=== PATIENT | female | born 1955 | race Caucasian/White ===

== ENCOUNTER → 2017-02-13 | Outpatient (CLI) | payer OTHER | LOC: FIMAGING 09:51 | PROVIDERS: ATTEND Internal Medicine | DX: Z01.818 Encounter for other preprocedural examination (principal); R91.8 Other nonspecific abnormal finding of lung field; M41.85 Other forms of scoliosis, thoracolumbar region ==

== ENCOUNTER → 2017-12-02 | Outpatient (CLI) | payer OTHER | LOC: BMCIMAGING 15:20 | PROVIDERS: ATTEND Internal Medicine | DX: Z01.818 Encounter for other preprocedural examination (principal); J98.4 Other disorders of lung; Z96.9 Presence of functional implant, unspecified ==

== ENCOUNTER 2018-11-07 01:25 | Emergency (ER) | payer OTHER ==
--- NOTE | 2018-11-07 01:30 | EDPHY ---
H & P Time Seen by Provider: 11/07/18 01:30 HPI/ROS: HPI CHIEF COMPLAINT: Right hip discomfort HISTORY OF PRESENT ILLNESS: 63-year-old female, previous right hip replacement , presents emergency room after she is complaining of right lateral hip pain. She thinks maybe her hip is dislocated. Patient states that her iPad fell out of her bed she was sitting on the nightstand and she went to turn to get the iPad off the ground bent over felt a pop in her right hip and then fell to the ground. Complains of right lateral hip pain. She arrives to the emergency room by EMS. She took 10 mg p.o. Oxycodone prior to arrival. Main complaint right lateral hip pain. She states that she heard a pop and then had some discomfort. Then went to the ground. She arrives emergency room lying on her right side on her right hip. Complains right lateral hip pain. She is able to lift up her right leg. She is able to lay flat but gives her discomfort. Past Medical History: Significant medical history for chronic pain, thyroid disease Past Surgical History: Right hip replacement, cervical fusion, extensive hardware down her back Social History: Denies daily use of drugs alcohol tobacco. Family History: Noncontributory ROS REVIEW OF SYSTEMS: 10 Systems were reviewed and negative with the exception of the elements mentioned in the history of present illness. Exam Constitutional nontoxic triage nursing summary reviewed, vital signs reviewed, awake/alert. Eyes normal conjunctivae and sclera, EOMI, PERRLA. HENT normal inspection, atraumatic, moist mucus membranes, no epistaxis, neck supple/ no meningismus, no raccoon eyes. Respiratory clear to auscultation bilaterally, normal breath sounds, no respiratory distress, no wheezing. Cardiovascular rate normal, regular rhythm, no murmur, no edema, distal pulses normal. Gastrointestinal soft, non-tender, no rebound, no guarding, normal bowel sounds, no distension, no pulsatile mass. Genitourinary no CVA tenderness. Musculoskeletal right leg: She is lying on her right hip however when I get her to lay flat there is a right leg to left leg discrepancy her right leg is shorter than her left leg. Her right leg is neurovascular intact with good cap refill, good distal pulse, and to be able to range her hip but she has discomfort. no midline vertebral tenderness, full range of motion, no calf swelling, no tenderness of extremities, no meningismus, good pulses, neurovascularly intact. Skin pink, warm, & dry, no rash, skin atraumatic. Neurologic awake, alert and oriented x 3, AAOx3, moves all 4 extremities equally, motor intact, sensory intact, CN II-XII intact, normal cerebellar, normal vision, normal speech. Psychiatric normal mood/affect. Heme/Lymph/Immune no lymphadenopathy. Differential Diagnosis: Right hip fracture, right femur fracture, hip dislocation Medical Decision Making: Plan for this patient x-ray pelvis, x-ray right hip. Re-evaluation: X-ray of the pelvis reviewed this shows a prostatic right hip and appears to be dislocated. Patient be moved from ER room 5 to ER room 2 and set up for conscious sedation. Procedure: Procedural sedation. #1 Indication: Right hip dislocation A pre-sedation evaluation was completed on the patient just prior to the procedure. Patient is an appropriate candidate for procedural sedation with ASA class 1 E. The risks of the sedation were discussed including but not limited to dysrhythmia, need for airway intervention or general anesthesia, disability, ; and verbal consent obtained. A timeout was observed and patient's identity confirmed. The patient was sedated with 40 mg propofol The patient was monitored with continuous pulse oximetry, capnography, and conveyor monitor. There were no complications and no significant hypoxemia. I remained at the bedside for the sedation. The total time I spent in the procedural sedation was 20 min This patient tolerated very well however prior to conscious sedation the patient was chewing gum we removed the come out of her oropharynx and her top dentures. She did not let me know she had gum in her mouth I was able to visualize this prior to conscious sedation and this was removed. X-ray of the right hip was obtain after conscious sedation, this was reviewed and was unable to reduce. 2nd attempt of conscious sedation will be pain. Patient consents. Procedure: Procedural sedation. #2 Indication: Right hip dislocation A pre-sedation evaluation was completed on the patient just prior to the procedure. Patient is an appropriate candidate for procedural sedation with ASA class 1 E. The risks of the sedation were discussed including but not limited to dysrhythmia, need for airway intervention or general anesthesia, disability, ; and verbal consent obtained. A timeout was observed and patient's identity confirmed. The patient was sedated with 40 mg propofol The patient was monitored with continuous pulse oximetry, capnography, and conveyor monitor. There were no complications and no significant hypoxemia. I remained at the bedside for the sedation. The total time I spent in the procedural sedation was 20 min Post reduction x-ray after 2nd procedural sedation reviewed by me still posteriorly dislocated. I have consult Dr. Stokes, orthopedic surgery he will come and see if he can get the hip back in. Procedure: Procedural sedation. #3 Indication: Persistent right hip dislocation posterior. A pre-sedation evaluation was completed on the patient just prior to the procedure. Patient is an appropriate candidate for procedural sedation with ASA class 1 E. The risks of the sedation were discussed including but not limited to dysrhythmia, need for airway intervention or general anesthesia, disability, ; and verbal consent obtained. A timeout was observed and patient's identity confirmed. The patient was sedated with 40. The patient was monitored with continuous pulse oximetry, capnography, and conveyor monitor. There were no complications and no significant hypoxemia. I remained at the bedside for the sedation. The total time I spent in the procedural sedation was 20 mins Procedural sedation was performed by myself, Dr. Stokes, with orthopedic surgery was able to relocate her hip after 2 attempts during this conscious sedation. Post reduction x-ray shows good hip alignment. No fracture. X-ray reviewed at 3:08 a.m. Of the right hip good relocation without fracture. 5:00 a.m. Patient ambulated well to the bathroom. Hip is relocated. She feels comfortable. She was comfortable going home with discharge. Recommend she follows up with Orthopedics closely in the next 24-48 hours. Source: Patient, EMS - Personal History Tetanus Vaccine Date: unknown - Medical/Surgical History Hx Asthma: No Hx Chronic Respiratory Disease: No Hx Diabetes: No Hx Cardiac Disease: No Hx Renal Disease: No Hx Cirrhosis: No Hx Alcoholism: No Hx HIV/AIDS: No Hx Splenectomy or Spleen Trauma: No Other PMH: r knee replacement; spinal sx; multiple falls; L femur fx; l hip replacement; hypothyroid, R knee meniscal tear - Social History Smoking Status: Former smoker Constitutional: Initial Vital Signs Temperature (C) 37.4 C 11/07/18 01:34 Heart Rate 91 11/07/18 01:34 Respiratory Rate 16 11/07/18 01:34 Blood Pressure 127/91 H 11/07/18 01:34 O2 Sat (%) 96 11/07/18 01:34 O2 Delivery Mode [Post Nasal Cannula Procedure 3rd] O2 Delivery Mode [Post Nasal Cannula Procedure 2nd] O2 Delivery Mode [Post Non-Rebreather Mask Procedure 1st] O2 Delivery Mode [Procedural Non-Rebreather Mask 1st] O2 Delivery Mode [.Immediate Non-Rebreather Mask Pre-Procedure] O2 Delivery Mode Room Air O2 (L/minute) [Post Procedure 2 3rd] O2 (L/minute) [Post Procedure 2 2nd] O2 (L/minute) [Post Procedure 15 1st] O2 (L/minute) [Procedural 1st] 15 O2 (L/minute) [.Immediate Pre- 15 Procedure] Allergies/Adverse Reactions: No Known Allergies Allergy (Unverified 08/10/12 16:09) Home Medications: Medication Instructions Recorded Levothyroxine [Synthroid 50 mcg 50 mcg PO DAILY06 08/10/12 (*)] Multivitamins [Multivitamin (*)] 1 each PO DAILY 08/26/12 Amphet Asp/Amphet/D-Amphet 20 mg PO DAILY 11/24/14 [Amphetamine Salts 20 mg Tablet] HYDROcodone/APAP 10325 [[place] 1 tab PO Q4H PRN 11/24/14 10/325 (*)] Magnesium Oxide [Magnesium Oxide 400 mg PO DAILY 11/24/14 400 mg (*)] Zolpidem Tartrate [Ambien 5MG (*)] 5 mg PO HS PRN 11/24/14 Calcium Polycarbophil [FIBERCON] 625 mg PO DAILY 01/14/15 DULoxetine [Cymbalta 30 MG (*)] 30 mg PO HS 01/14/15 Cholecalciferol Vit D3 [Vitamin D3 5,000 units PO DAILY 02/08/15 (*)] Gabapentin [Neurontin 400 MG (*)] 1,200 mg PO TID 02/08/15 oxyCODONE CR [Oxycontin] 30 mg PO Q8H 02/08/15 Docusate Sodium [Colace 100 MG (*)] 100 mg PO BID #60 cap 02/11/15 Warfarin Sodium [Coumadin 2.5MG 2.5 mg PO DAILY16 #20 tab 02/11/15 (*)] celeCOXIB [Celebrex (*)] 200 mg PO DAILY #20 cap 02/11/15 Medical Decision Making - Data Points Medications Given: Discontinued Medications Sodium Chloride (Ns) 1,000 mls @ 0 mls/hr IV ONCE ONE PRN Reason: Wide Open Stop: 11/07/18 01:47 Last Admin: 11/07/18 01:54 Dose: 1,000 mls Sodium Chloride (Ns) 1,000 mls @ 0 mls/hr IV EDNOW ONE; Wide Open PRN Reason: Protocol Stop: 11/07/18 02:56 Last Admin: 11/07/18 02:56 Dose: 1,000 mls Propofol (Diprivan) 100 mg IVP EDNOW ONE Stop: 11/07/18 01:47 Last Admin: 11/07/18 02:33 Dose: 80 mg Propofol (Diprivan) 40 mg IVP EDNOW ONE Stop: 11/07/18 03:17 Last Admin: 11/07/18 03:17 Dose: 40 mg Departure - Departure Disposition: Home, Routine, Self-Care Clinical Impression: Hip dislocation, right Qualifiers: Encounter type: initial encounter Qualified Code(s): S73.004A - Unspecified dislocation of right hip, initial encounter Condition: Good Instructions: Hip Dislocation (ED) Additional Instructions: 1. Follow up with your orthopedic surgeon Referrals: NONE *PRIMARY CARE P,. [Primary Care Provider] - As per Instructions
[2018-11-07] MEDS ORDERED: NS 1,000 ML IV ONE ×2 (01:46→02:55)
[2018-11-07] MEDS ORDERED: PROPOFOL 200 MG/20 ML VIAL IVP ONE ×2 (01:46→03:16)
[2018-11-07] MEDS ORDERED: PROPOFOL 200 MG/20 ML VIAL ONE (01:47)
[2018-11-07 05:12] VITALS: BP 108/67
--- NOTE | 2018-11-07 05:18 | GCON ---
REASON FOR CONSULTATION: I was asked to see the patient by the emergency room physician for a diagno sis of a right hip dislocation. HISTORY OF PRESENT ILLNESS: The patient is a very pleasant 63-year-old woman with multiple orthopedi c procedures including multiple right hip replacements as well as a left hemiarthroplasty and multipl e spine fusions. She sustained a fall earlier today, resulting in immediate pain and deformity of th e right leg and inability to bear weight. PHYSICAL EXAMINATION: On physical examination, the patient has incisions anteriorly and posteriorly about the hip. She has no gross sensorimotor or vascular deficits; however, her exam is markedly rachel ited by the dislocation at this time. Of note, the patient had been sedated several times before my seeing her and is somewhat sedated during this exam; however, the patient is still certainly able to give consent for the upcoming procedure. IMAGING: Image review includes x-rays of the pelvis and right femur, which demonstrate a right hip d islocation without evidence of fracture. PROCEDURE: While a conscious sedation was administered by the Emergency Department, the hip was redu nu using a combination of internal rotation, traction, and flexion, and abduction. The hip was note d to be quite unstable and readily located and dislocated. The knee and hip were then placed into fu ll extension and the knee immobilizer was applied. An additional x-ray was taken, which demonstrated location of the prosthesis. IMPRESSION: Right hip dislocation, status post relocation. ASSESSMENT AND PLAN: Moving forward, I think the patient should certainly see her orthopedic surgeon rather urgently, hopefully later today. The patient is to maintain the immobilizer at all times. O f note, if she does dislocate again, I think she should probably be admitted for her safety, given th e degree of instability in the hip noted. Thank you again for the opportunity for this consultation. Please do not hesitate to contact me if a ny further issues arise. /[id number]/MODL
== END 2018-11-07 06:22 | disposition home or self-care (01) ==
LOC: EDUNIT#
PROC: 0SS9XZZ Reposition Right Hip Joint, External Approach (ICD-10-PCS; principal; 2018-11-07)
DX: S73.004A Unspecified dislocation of right hip, initial encounter (principal); X50.1XXA Overexertion from prolonged static or awkward postures, initial encounter; Y92.003 Bedroom of unspecified non-institutional (private) residence as the place of occurrence of the external cause; Y93.9 Activity, unspecified; Y99.9 Unspecified external cause status; Z87.891 Personal history of nicotine dependence
CPT/HCPCS: J2704

== ENCOUNTER 2018-11-14 23:59 | Emergency (ER) | payer OTHER ==
[2018-11-15] MEDS ORDERED: NS 1,000 ML IV ONE (00:02)
--- NOTE | 2018-11-15 00:04 | EDPHY ---
H & P Time Seen by Provider: 11/15/18 00:01 HPI/ROS: HPI CHIEF COMPLAINT: Right hip dislocation HISTORY OF PRESENT ILLNESS: Patient very pleasant 63-year-old female who I am very familiar with that I saw last week for hip dislocation. She presents emergency room stating that she lunged after she knocked a thing of super glue off of the counter turned and felt a pop in her right hip and believes her right hip is dislocated again. She arrives by EMS. She states is not nearly as painful as last weeks dislocation. Denies direct trauma. Past Medical History: Chronic pain, chronic back pain Past Surgical History: Extensive surgeries including bilateral hips, and extensive back surgery. Social History: Lives locally, independent, denies drugs alcohol tobacco. Family History: Noncontributory ROS REVIEW OF SYSTEMS: 10 Systems were reviewed and negative with the exception of the elements mentioned in the history of present illness. Exam Constitutional triage nursing summary reviewed, vital signs reviewed, awake/ alert. Eyes normal conjunctivae and sclera, EOMI, PERRLA. HENT normal inspection, atraumatic, moist mucus membranes, no epistaxis, neck supple/ no meningismus, no raccoon eyes. Respiratory clear to auscultation bilaterally, normal breath sounds, no respiratory distress, no wheezing. Cardiovascular rate normal, regular rhythm, no murmur, no edema, distal pulses normal. Gastrointestinal soft, non-tender, no rebound, no guarding, normal bowel sounds, no distension, no pulsatile mass. Genitourinary no CVA tenderness. Musculoskeletal right leg: Shortened and externally rotated. Good distal pulse , good cap refill, warm extremity. Limited range of motion due to pain of the right lateral hip. no midline vertebral tenderness, full range of motion, no calf swelling, no tenderness of extremities, no meningismus, good pulses, neurovascularly intact. Skin pink, warm, & dry, no rash, skin atraumatic. Neurologic awake, alert and oriented x 3, AAOx3, moves all 4 extremities equally, motor intact, sensory intact, CN II-XII intact, normal cerebellar, normal vision, normal speech. Psychiatric normal mood/affect. Heme/Lymph/Immune no lymphadenopathy. Differential Diagnosis: Includes but is not limited to in a particular order hip dislocation, hip fracture, contusion, strain Medical Decision Making: Plan for this patient x-ray right hip, moved to ER room 1 for possible conscious sedation for relocation of the hip. Re-evaluation: X-ray a pre reduction shows a posterior right hip dislocation Procedure: Procedural sedation. Indication: Right hip dislocation posterior A pre-sedation evaluation was completed on the patient just prior to the procedure. Patient is an appropriate candidate for procedural sedation with ASA class 1 E. The risks of the sedation were discussed including but not limited to dysrhythmia, need for airway intervention or general anesthesia, disability, ; and verbal consent obtained. A timeout was observed and patient's identity confirmed. The patient was sedated with 100 mg Propofol. The patient was monitored with continuous pulse oximetry, capnography, and desk monitor. There were no complications and no significant hypoxemia. I remained at the bedside for the sedation. The total time I spent in the procedural sedation was 30 min Post reduction x-ray appears good. Good alignment of the right hip. No fracture. 12:35 a.m. patient being recovered from conscious sedation. She did well during the procedure there were no complications. Patient placed in knee immobilizer for immobility of her right hip. 0140: Re-evaluation at this time she is resting comfortably she has no complaints. Ambulatory well throughout the emergency without difficulty. P.o. Challenge well without difficulty. Feels much better. No significant hip pain. Placed in knee immobilizer for immobilization of the right hip. X-rays reviewed. 1st initial hip x-ray shows a posterior dislocation. 2nd x-ray of the hip right-sided shows relocation without fracture. Interpreted by myself. Source: Patient, EMS - Personal History Tetanus Vaccine Date: unknown - Medical/Surgical History Hx Asthma: No Hx Chronic Respiratory Disease: No Hx Diabetes: No Hx Cardiac Disease: No Hx Renal Disease: No Hx Cirrhosis: No Hx Alcoholism: No Hx HIV/AIDS: No Hx Splenectomy or Spleen Trauma: No Other PMH: r knee replacement; spinal sx; multiple falls; L femur fx; l hip replacement; hypothyroid, R knee meniscal tear - Social History Smoking Status: Former smoker Constitutional: Initial Vital Signs Temperature (C) 37.1 C 11/15/18 00:00 Heart Rate 83 11/15/18 00:00 Respiratory Rate 16 11/15/18 00:00 Blood Pressure 133/84 H 11/15/18 00:00 O2 Sat (%) 97 11/15/18 00:00 O2 Delivery Mode [Post Nasal Cannula Procedure 1st] O2 Delivery Mode [Procedural Non-Rebreather Mask 3rd] O2 Delivery Mode [Procedural Non-Rebreather Mask 2nd] O2 Delivery Mode [Procedural Non-Rebreather Mask 1st] O2 Delivery Mode [.Immediate Non-Rebreather Mask Pre-Procedure] O2 Delivery Mode Room Air O2 (L/minute) [Post Procedure 2 1st] O2 (L/minute) [Procedural 3rd] 15 O2 (L/minute) [Procedural 2nd] 15 O2 (L/minute) [Procedural 1st] 15 O2 (L/minute) [.Immediate Pre- 15 Procedure] Allergies/Adverse Reactions: No Known Allergies Allergy (Unverified 11/15/18 00:16) Home Medications: Medication Instructions Recorded Levothyroxine [Synthroid 50 mcg 50 mcg PO DAILY06 08/10/12 (*)] Multivitamins [Multivitamin (*)] 1 each PO DAILY 08/26/12 Amphet Asp/Amphet/D-Amphet 20 mg PO DAILY 11/24/14 [Amphetamine Salts 20 mg Tablet] HYDROcodone/APAP 10/325 [[place] 1 tab PO Q4H PRN 11/24/14 10/325 (*)] Magnesium Oxide [Magnesium Oxide 400 mg PO DAILY 11/24/14 400 mg (*)] Zolpidem Tartrate [Ambien 5MG (*)] 5 mg PO HS PRN 11/24/14 Calcium Polycarbophil [FIBERCON] 625 mg PO DAILY 01/14/15 DULoxetine [Cymbalta 30 MG (*)] 30 mg PO HS 01/14/15 Cholecalciferol Vit D3 [Vitamin D3 5,000 units PO DAILY 02/08/15 (*)] Gabapentin [Neurontin 400 MG (*)] 1,200 mg PO TID 02/08/15 oxyCODONE CR [Oxycontin] 30 mg PO Q8H 02/08/15 Docusate Sodium [Colace 100 MG (*)] 100 mg PO BID #60 cap 02/11/15 Warfarin Sodium [Coumadin 2.5MG 2.5 mg PO DAILY16 #20 tab 02/11/15 (*)] celeCOXIB [Celebrex (*)] 200 mg PO DAILY #20 cap 02/11/15 Medical Decision Making - Data Points Medications Given: Discontinued Medications Sodium Chloride (Ns) 1,000 mls @ 0 mls/hr IV ONCE ONE PRN Reason: Wide Open Stop: 11/15/18 00:03 Last Admin: 11/15/18 00:18 Dose: 1,000 mls Propofol (Diprivan) 100 mg IVP EDNOW ONE Stop: 11/15/18 00:58 Last Admin: 11/15/18 00:35 Dose: 100 mg Departure - Departure Disposition: Home, Routine, Self-Care Clinical Impression: Hip dislocation, right Condition: Good Instructions: Hip Dislocation (ED) Additional Instructions: 1. Follow up with her orthopedic surgeon 2. Knee immobilizer to help prevent you're hip dislocating. 3. Return to the emergency room if worsening symptoms Referrals: Patient,NotPresent [Unknown] - As per Instructions Armin Gallegos MD [Medical Doctor] - As per Instructions
[2018-11-15] MEDS ORDERED: PROPOFOL 200 MG/20 ML VIAL ONE (00:12)
[2018-11-15] MEDS ORDERED: PROPOFOL 200 MG/20 ML VIAL IVP ONE (00:57)
[2018-11-15 05:00] VITALS: BP 105/63
== END 2018-11-15 04:56 | disposition home or self-care (01) ==
LOC: EDUNIT#
PROC: 0SS9XZZ Reposition Right Hip Joint, External Approach (ICD-10-PCS; principal; 2018-11-14)
DX: S73.001A Unspecified subluxation of right hip, initial encounter (principal); W18.49XA Other slipping, tripping and stumbling without falling, initial encounter; Y92.000 Kitchen of unspecified non-institutional (private) residence as the place of occurrence of the external cause
CPT/HCPCS: J2704

== ENCOUNTER 2019-03-25 00:44 | Inpatient (IN) | payer OTHER, BC ==
[2019-03-25] MEDS ORDERED: PROPOFOL 200 MG/20 ML VIAL ONE (00:53)
--- NOTE | 2019-03-25 00:53 | EDPHY ---
H & P Time Seen by Provider: 03/25/19 00:51 HPI/ROS: HPI CHIEF COMPLAINT: Right hip dislocation. HISTORY OF PRESENT ILLNESS: Patient very pleasant 63-year-old female arrives to the emergency room with right hip dislocation. I have seen this patient previous times right hip dislocation. She is mechanical hip. She lives independently in a private residence, sometimes her hip pops out with different movements. She states she was bent over cleaning the toilet stood up and her right hip popped out. She was unable to relocated at home. She arrives to emergency room by ambulance in no acute distress. She has an internally rotated shortened right leg. She has mild tender palpation right lateral hip. Past Medical History: Right hip dislocation, chronic back pain Past Surgical History: Multiple surgeries. Hip surgeries. Back surgery. Social History: Denies drugs alcohol tobacco Family History: Noncontributory ROS REVIEW OF SYSTEMS: 10 Systems were reviewed and negative with the exception of the elements mentioned in the history of present illness. Exam Constitutional triage nursing summary reviewed, vital signs reviewed, awake/ alert. Eyes normal conjunctivae and sclera, EOMI, PERRLA. HENT normal inspection, atraumatic, moist mucus membranes, no epistaxis, neck supple/ no meningismus, no raccoon eyes. Respiratory clear to auscultation bilaterally, normal breath sounds, no respiratory distress, no wheezing. Cardiovascular rate normal, regular rhythm, no murmur, no edema, distal pulses normal. Gastrointestinal soft, non-tender, no rebound, no guarding, normal bowel sounds, no distension, no pulsatile mass. Genitourinary no CVA tenderness. Musculoskeletal right leg neurovascular intact good distal pulse, good cap refill, inverted than shortened right leg. no midline vertebral tenderness, full range of motion, no calf swelling, no tenderness of extremities, no meningismus, good pulses, neurovascularly intact. Skin pink, warm, & dry, no rash, skin atraumatic. Neurologic awake, alert and oriented x 3, AAOx3, moves all 4 extremities equally, motor intact, sensory intact, CN II-XII intact, normal cerebellar, normal vision, normal speech. Psychiatric normal mood/affect. Heme/Lymph/Immune no lymphadenopathy. Differential Diagnosis: Includes but is not limited to in a particular order hip dislocation, hip fracture, pelvis fracture Medical Decision Making: Plan for this patient x-ray right hip, set up for conscious sedation. Re-evaluation: Procedure: Procedural sedation. Indication: Right Hip Dislocation. A pre-sedation evaluation was completed on the patient just prior to the procedure. Patient is an appropriate candidate for procedural sedation with ASA class 1 E. The risks of the sedation were discussed including but not limited to dysrhythmia, need for airway intervention or general anesthesia, disability, ; and verbal consent obtained. A timeout was observed and patient's identity confirmed. The patient was sedated with 60mg of propofol. The patient was monitored with continuous pulse oximetry, capnography, and cafeteria monitor. There were no complications and no significant hypoxemia. I remained at the bedside for the sedation. The total time I spent in the procedural sedation was 20 min Patient tolerated conscious sedation well. X-ray the right hip reviewed this shows posterior dislocation. Patient tolerated conscious sedation well. She is currently recovering. Post reduction x-ray is being obtained. Post reduction x-ray of the right hip reviewed by myself. This shows normal anatomic alignment however above the acetabulum there is a bony abnormality indicating possibly a small fracture. Will make sure patient follows up with Orthopedics I discussed this with the patient at length. Patient recovered nicely from conscious sedation. There was no complications. Patient ambulated well throughout the emergency room without difficulty. She feels much better. Does complain of some mild right lateral hip pain but has full range of motion. Plan for patient follow up with Orthopedics. We discussed return precautions return emergency room if worsening pain fever, trouble walking, or dislocation. Follow up with Orthopedics. Recommend taking easy over the next 48 hr. I attempted to road test the patient however she had a very unsteady gait, is a fall risk she lives alone. She complains of right hip pain right knee pain. Given that she is unable to walk, not safe for discharge home should be admitted the hospital. 416AM: Patient to be placed in knee immobilizer to help from dislocating her right hip again. Xray of right knee will be obtained Plan for admission as she is a fall risk and lives alone. Most likely ortho to see labs will be sent Patient agrees for admission Dr. Garcia Consulted agrees to admit. X-ray of the right knee negative for acute traumatic injury. Hardware appears to be intact. Source: Patient, EMS - Personal History Tetanus Vaccine Date: unknown - Medical/Surgical History Hx Asthma: No Hx Chronic Respiratory Disease: No Hx Diabetes: No Hx Cardiac Disease: No Hx Renal Disease: No Hx Cirrhosis: No Hx Alcoholism: No Hx HIV/AIDS: No Hx Splenectomy or Spleen Trauma: No Other PMH: r knee replacement; spinal sx; multiple falls; L femur fx; l hip replacement; hypothyroid, R knee meniscal tear - Social History Smoking Status: Former smoker Constitutional: Initial Vital Signs Temperature (C) 36.2 C 03/25/19 00:50 Heart Rate 83 03/25/19 00:50 Respiratory Rate 16 03/25/19 00:50 Blood Pressure 132/84 H 03/25/19 00:50 O2 Sat (%) 95 03/25/19 00:50 O2 Delivery Mode [Post Nasal Cannula Procedure 2nd] O2 Delivery Mode [Post Non-Rebreather Mask Procedure 1st] O2 Delivery Mode [Procedural Non-Rebreather Mask 1st] O2 Delivery Mode [.Immediate Non-Rebreather Mask Pre-Procedure] O2 Delivery Mode Room Air O2 (L/minute) [Post Procedure 2 2nd] O2 (L/minute) [Post Procedure 15 1st] O2 (L/minute) [Procedural 1st] 15 O2 (L/minute) [.Immediate Pre- 15 Procedure] O2 (L/minute) 10 Allergies/Adverse Reactions: No Known Allergies Allergy (Unverified 03/25/19 00:50) Home Medications: Medication Instructions Recorded Levothyroxine [Synthroid 50 mcg 50 mcg PO DAILY06 08/10/12 (*)] Multivitamins [Multivitamin (*)] 1 each PO DAILY 08/26/12 Amphet Asp/Amphet/D-Amphet 20 mg PO BID@11/24/14 [Amphetamine Salts 20 mg Tablet] Zolpidem Tartrate [Ambien 5MG (*)] 5 mg PO HS PRN 11/24/14 Calcium Polycarbophil [FIBERCON] 625 mg PO DAILY 01/14/15 Gabapentin [Neurontin 400 MG (*)] 1,200 mg PO TID 02/08/15 Naloxegol Oxalate [Movantik] 25 mg PO DAILY 03/25/19 Rivaroxaban [Xarelto] 20 mg PO DAILY18 03/25/19 morphINE SR [MS Contin/Oramorph SR 30 mg PO TID 03/25/19 30 mg (*)] oxyCODONE IR [Oxycodone Ir (*)] 10 mg PO Q6 PRN 03/25/19 Medical Decision Making - Data Points Laboratory Results: Laboratory Results 03/25/19 04:17 03/25/19 04:17 Medications Given: Amphetamine/Dextroamphetamine (Adderall) 20 mg PO BID@0900,1500 [facility] Stop: 09/21/19 14:59 Last Admin: 03/27/19 09:18 Dose: 20 mg Gabapentin (Neurontin) 1,200 mg PO TID [facility] Stop: 09/21/19 09:44 Last Admin: 03/27/19 09:19 Dose: 1,200 mg Levothyroxine Sodium (Synthroid) 50 mcg PO DAILY06 [facility] Stop: 09/21/19 09:44 Last Admin: 03/27/19 05:02 Dose: 50 mcg Miscellaneous Medication (Naloxegol Oxalate [Movantik]) 25 mg PO DAILY [facility] Stop: 09/21/19 09:44 Last Admin: 03/27/19 09:22 Dose: Not Given Morphine Sulfate (Ms Contin/Oramorph Sr) 30 mg PO TID [facility] Stop: 04/04/19 09:44 Last Admin: 03/27/19 09:19 Dose: 30 mg Multivitamins (Tab-A-Zulema) 1 each PO DAILY [facility] Stop: 09/21/19 09:44 Last Admin: 03/27/19 09:19 Dose: 1 each Oxycodone HCl (Oxycodone Ir) 10 mg PO Q6 PRN PRN Reason: Pain, Severe Able to Take PO Stop: 04/04/19 09:42 Last Admin: 03/26/19 23:38 Dose: 10 mg Psyllium Hydrophilic Mucilloid (Metamucil/Konsyl) 1 each PO DAILY [facility] Stop: 09/22/19 08:59 Last Admin: 03/27/19 09:19 Dose: 1 each Rivaroxaban (Xarelto) 20 mg PO DAILY18 [facility] Stop: 09/21/19 17:59 Last Admin: 03/26/19 17:11 Dose: 20 mg Zolpidem Tartrate (Ambien) 5 mg PO HS PRN PRN Reason: Sleep/Insomnia Stop: 09/21/19 09:42 Last Admin: 03/26/19 23:38 Dose: 5 mg Discontinued Medications Amphetamine/Dextroamphetamine (Adderall) 20 mg PO BID [facility] Stop: 09/21/19 09:44 Last Admin: 03/25/19 10:08 Dose: 20 mg Enoxaparin Sodium (Lovenox) 40 mg SC DAILY [facility] Stop: 09/21/19 08:59 Last Admin: 03/25/19 11:01 Dose: Not Given Hydromorphone HCl (Dilaudid) 0.5 mg IVP EDNOW ONE Stop: 03/25/19 01:19 Last Admin: 03/25/19 01:20 Dose: 0.5 mg Sodium Chloride (Ns) 1,000 mls @ 0 mls/hr IV ONCE ONE PRN Reason: Wide Open Stop: 03/25/19 04:12 Last Admin: 03/25/19 02:30 Dose: 1,000 mls Miscellaneous Medication (Calcium Polycarbophil [Fibercon]) 625 mg PO DAILY [facility] Stop: 09/21/19 09:44 Last Admin: 03/25/19 10:00 Dose: Not Given Oxycodone HCl (Oxycontin) 30 mg PO ONCE ONE Stop: 03/25/19 09:40 Last Admin: 03/25/19 11:02 Dose: Not Given Propofol (Diprivan) 100 mg IVP EDNOW ONE Stop: 03/25/19 01:05 Last Admin: 03/25/19 01:33 Dose: 60 mg Departure - Departure Disposition: [facility] In[facility] Acute Clinical Impression: Hip dislocation, right Qualifiers: Encounter type: initial encounter Qualified Code(s): S73.004A - Unspecified dislocation of right hip, initial encounter Condition: Good
[2019-03-25] MEDS ORDERED: PROPOFOL 200 MG/20 ML VIAL IVP ONE (01:04)
[2019-03-25] MEDS ORDERED: HYDROmorphONE/DILAUDID 1 MG/ML INJ IVP ONE (01:18)
[2019-03-25] MEDS ORDERED: HYDROmorphONE/DILAUDID 1 MG/ML INJ ONE (01:18)
[2019-03-25] MEDS ORDERED: NS 1,000 ML IV ONE (04:11)
[2019-03-25] MEDS ORDERED: ONDANSETRON DISINTEGRATING 4 MG TAB PO PRN (04:20)
[2019-03-25] MEDS ORDERED: ONDANSETRON 4 MG/2 ML VIAL IVP PRN (04:20)
[2019-03-25] MEDS ORDERED: ACETAMINOPHEN 325 MG TAB PO PRN (04:20)
[2019-03-25] MEDS ORDERED: oxyCODONE IR 5 MG TAB PO PRN (04:21)
[2019-03-25 04:32] LABS: PLATELET COUNT 248 10^3/uL (150-400)
--- NOTE | 2019-03-25 05:24 | PDGENHP ---
History and Physical - Chief Complaint R hip pain - History of Present Illness 63 yo F w/ hx of b/l hip arthroplasties, R TKA, C2 spinal cord injury, depression, and chronic pain presents with R hip pain. The patient was cleaning her bathroom today when she felt her R hip dislocate. This has happened before. She came to the ED and the dislocation was confirmed on XR. Dr. Villela reduced her R hip in the ED. However, she continued to have R hip and R knee pain after this making ambulation difficult. She lives alone in a house with stairs so the decision was made to admit the patient for observation. She denies other complaints to me. Of note, she states that she has been told that she needs a surgical R hip revision. She visited with her orthopedist Dr. Jerome yesterday in order to start planning this procedure. Case discussed with ED physician Dr. Villela; records reviewed and summarized above. History Information - Allergies/Home Medication List Allergies/Adverse Reactions: No Known Allergies Allergy (Unverified 03/25/19 00:50) Home Medications: Levothyroxine [Synthroid 50 mcg (*)] 50 mcg PO DAILY06 08/10/12 [Last Taken ] Multivitamins [Multivitamin (*)] 1 each PO DAILY 08/26/12 [Last Taken 02/07/15] Amphet Asp/Amphet/D-Amphet [Amphetamine Salts 20 mg Tablet] 20 mg PO DAILY 11/24 [Last Taken 02/07/15 06:00] HYDROcodone/APAP 10/325 [[place] 10/325 (*)] 1 tab PO Q4H PRN 11/24/14 [Last Taken 02/07/15 22:30] Magnesium Oxide [Magnesium Oxide 400 mg (*)] 400 mg PO DAILY 11/24/14 [Last Taken 02/07/15] Zolpidem Tartrate [Ambien 5MG (*)] 5 mg PO HS PRN 11/24/14 [Last Taken 02/07/15 21:00] Calcium Polycarbophil [FIBERCON] 625 mg PO DAILY 01/14/15 [Last Taken 02/07/15] DULoxetine [Cymbalta 30 MG (*)] 30 mg PO HS 01/14/15 [Last Taken 02/07/15 21:00] Cholecalciferol Vit D3 [Vitamin D3 (*)] 5,000 units PO DAILY 02/08/15 [Last Taken Unknown] Gabapentin [Neurontin 400 MG (*)] 1,200 mg PO TID 02/08/15 [Last Taken 02/07/15] oxyCODONE CR [Oxycontin] 30 mg PO Q8H 02/08/15 [Last Taken 02/07/15] I have personally reviewed and updated: family history, medical history - Past Medical History arthritis Additional medical history: Depression, anxiety. C2 spinal cord injury. Chronic pain - Surgical History Reports: spinal surgery Additional surgical history: B/L THAs. R TKA - Family History Positive for: cancer - Social History Smoking Status: Former smoker Review of Systems Review of Systems: ROS: 10pt was reviewed & negative except for what was stated in HPI & below Physical Exam Physical Exam: Temp Pulse Resp BP Pulse Ox 36.6 C 74 16 106/67 97 03/25/19 02:00 03/25/19 02:00 03/25/19 02:00 03/25/19 02:00 03/25/19 02:00 Constitutional: appears nourished, uncomfortable Eyes: PERRL, EOMI Ears, Nose, Mouth, Throat: moist mucous membranes, no oral mucosal ulcers Cardiovascular: regular rate and rhythym, systolic murmur Respiratory: no respiratory distress, clear to auscultation Gastrointestinal: normoactive bowel sounds, soft, non-tender abdomen Skin: warm, normal color Musculoskeletal: pain with ROM (R hip, R knee), abnormal gait Neurologic: AAOx3, CN II-XII Intact Psychiatric: interacting appropriately, not anxious Lab Data & Imaging Review 03/25/19 04:17 03/25/19 04:17 WBC 6.71 10^3/uL (3.80-9.50) 03/25/19 04:17 RBC 4.12 10^6/uL (4.18-5.33) L 03/25/19 04:17 Hgb 12.3 g/dL (12.6-16.3) L 03/25/19 04:17 Hct 37.5 % (38.0-47.0) L 03/25/19 04:17 MCV 91.0 fL (81.5-99.8) 03/25/19 04:17 MCH 29.9 pg (27.9-34.1) 03/25/19 04:17 MCHC 32.8 g/dL (32.4-36.7) 03/25/19 04:17 RDW 14.7 % (11.5-15.2) 03/25/19 04:17 Plt Count 248 10^3/uL (150-400) 03/25/19 04:17 MPV 8.9 fL (8.7-11.7) 03/25/19 04:17 Neut % (Auto) 58.8 % (39.3-74.2) 03/25/19 04:17 Lymph % (Auto) 29.5 % (15.0-45.0) 03/25/19 04:17 [place] % (Auto) 9.2 % (4.5-13.0) 03/25/19 04:17 Eos % (Auto) 2.1 % (0.6-7.6) 03/25/19 04:17 Baso % (Auto) 0.3 % (0.3-1.7) 03/25/19 04:17 Nucleat RBC Rel Count 0.0 % (0.0-0.2) 03/25/19 04:17 Absolute Neuts (auto) 3.94 10^3/uL (1.70-6.50) 03/25/19 04:17 Absolute Lymphs (auto) 1.98 10^3/uL (1.00-3.00) 03/25/19 04:17 Absolute Monos (auto) 0.62 10^3/uL (0.30-0.80) 03/25/19 04:17 Absolute Eos (auto) 0.14 10^3/uL (0.03-0.40) 03/25/19 04:17 Absolute Basos (auto) 0.02 10^3/uL (0.02-0.10) 03/25/19 04:17 Absolute Nucleated RBC 0.00 10^3/uL (0-0.01) 03/25/19 04:17 Immature Gran % 0.1 % (0.0-1.1) 03/25/19 04:17 Immature Gran # 0.01 10^3/uL (0.00-0.10) 03/25/19 04:17 Sodium 140 mEq/L (135-145) 03/25/19 04:17 Potassium 4.0 mEq/L (3.5-5.2) 03/25/19 04:17 Chloride 106 mEq/L (97-110) 03/25/19 04:17 Carbon Dioxide 30 mEq/l (22-31) 03/25/19 04:17 Anion Gap 4 mEq/L (6-14) L 03/25/19 04:17 BUN 15 mg/dL (7-23) 03/25/19 04:17 Creatinine 0.6 mg/dL (0.6-1.0) 03/25/19 04:17 Estimated GFR > 60 03/25/19 04:17 Glucose 96 mg/dL (70-100) 03/25/19 04:17 Calcium 8.8 mg/dL (8.5-10.4) 03/25/19 04:17 Assessment & Plan Assessment: 63 yo F w/ hx of b/l hip arthroplasties, R TKA, C2 spinal cord injury, depression, and chronic pain presents with R hip dislocation. Plan: 1. R hip dislocation - Occurred with minimal force; per patient this has happened before. She visited with her orthopedist Dr. Jerome yesterday to discuss surgical revision to her R hip. The dislocation was reduced in the ED but patient has had trouble ambulating afterwards. - Admit for observation - Pain control - PT/OT evaluations - Orthopedics consult if patient not improving, although she would prefer to follow up with Dr. Jerome as an outpatient if possible 2. R knee pain - Acute on chronic, per patient this was exacerbated during the process of reducing her R hip. - Pain control - PT/OT evaluations - Brace in place 3. Chronic pain - Due to multiple surgeries and C2 spinal cord injury. - Continue home medications pending reconciliation 4. Depression, Anxiety - Continue home medications pending reconciliation Diet - Regular Code - Full Ppx -LMWH Dispo - Admit under observation status
--- NOTE | 2019-03-25 08:47 | HOSPPROG ---
Hospitalist Progress Note Assessment/Plan: 63 yo F w/ hx of b/l hip arthroplasties, R TKA, C2 spinal cord injury, depression, and chronic pain presents with R hip pain. The patient was cleaning her bathroom when she felt her R hip dislocate. She came to the ED and the dislocation was confirmed on XR. Dr. Villela reduced her R hip in the ED. Continued to have pain so was admitted for further evaluation. * right hip dislocation -right hip dislocation status post reduction in the emergency room -will see how she does with physical therapy and occupational therapy -to follow up with Dr Jerome in the OP setting *r knee pain -brace in place *chronic pain on chronic continuous opiates -due to multiple surgeries and C2 spinal cord injury -resumed her home medicatioon * Depression, Anxiety - Continue home medications *plan: PT and OT to see. She lives alone and if is back to her baseline; will dc later today. Subjective: Lara is having pain to right hip and other areas. Objective: Vital Signs Temp Pulse Resp BP Pulse Ox 36.7 C 76 18 106/61 93 03/25/19 08:00 03/25/19 08:00 03/25/19 08:00 03/25/19 08:00 03/25/19 08:00 Laboratory Results 03/25/19 04:17 03/25/19 04:17 03/24/19 03/25/19 03/26/19 05:59 05:59 05:59 Intake Total 1000 Balance 1000 - Physical Exam Constitutional: chronically ill appearing, other (thin) Eyes: PERRL Ears, Nose, Mouth, Throat: hearing normal Respiratory: no respiratory distress Gastrointestinal: normoactive bowel sounds Skin: warm Neurologic: AAOx3 Psychiatric: interacting appropriately ICD10 Worksheet Patient Problems: Problems Problem Status Onset Hip dislocation, right Acute Encounter for medication refill Acute Femoral neck fracture Acute Knee pain Acute
[2019-03-25] MEDS ORDERED: ENOXAPARIN 40 MG/0.4 ML SYR SC SCH (09:00)
[2019-03-25] MEDS ORDERED: oxyCODONE CR 30 MG TAB PO ONE (09:39)
[2019-03-25] MEDS ORDERED: NON-FORMULARY NEW DRUG (Calcium Polycarbophil [Fibercon] 625 MG) PO SCH (09:45)
[2019-03-25] MEDS ORDERED: ADDERALL 20 MG TAB PO SCH (09:45)
[2019-03-25] MEDS: morphINE SR 30 MG TAB PO SCH ×3 (09:59→21:02)
[2019-03-25] MEDS: GABAPENTIN 400 MG CAP PO SCH ×3 (09:59→21:02)
[2019-03-25] MEDS: LEVOTHYROXINE 50 MCG TAB PO SCH (09:59)
[2019-03-25] MEDS: MULTIVITAMINS 1 EACH TAB PO SCH (09:59)
[2019-03-25] MEDS: NALOXEGOL OXALATE 25 MG PO SCH (10:00)
[2019-03-25] MEDS: oxyCODONE IR 5 MG TAB PO PRN ×2 (10:07→23:57)
--- NOTE | 2019-03-25 10:37 | ASMTCASEMG ---
Living Arrangements What is your living Answers: Alone arrangement? Who do you live with? Type Of Residence What kind of residence do Answers: House you live in? Discharge Plan Comments Coordination Status Comments Notes: Patient is a 63yo female who comes to [facility] for her right hip dislocation and is being admitted OBS for further evaluation. PT/OT evals have been ordered. D/C plan TBD. CM will follow. Date Signed: 03/25/2019 10:36 AM Electronically Signed By:Staci Quinteros LCSW
--- NOTE | 2019-03-25 13:27 | GCON ---
[f rep st] CONSULTATION DATE OF CONSULTATION: 03/25/2019 REASON FOR CONSULTATION: Right hip. HISTORY OF CONSULTATION: The patient is a 63-year-old with a history of multiple previous hip surger ies (hip replacement and subsequent revisions), as well as lumbar fusion. She has had multiple episo kalin of dislocation of her right hip, most recently yesterday. This underwent closed reduction. Ther e was concern, based on radiographic evidence of a superior acetabular fracture, that additional yobani tment or weightbearing restrictions may be necessary. EXAMINATION RELATIVE TO CONSULTATION: She is currently in a straight leg knee immobilizer. Her limb lengths and rotation are essentially symmetric. Gentle flexion of the hip does not produce any sign ificant pain. IMAGING: Radiograph of her hip shows evidence of located bilateral total hip arthroplasties. There is a small fracture on the superior lateral acetabulum. ASSESSMENT: 1. Right hip recurrent dislocations. 2. Superior acetabular fracture. PLAN: The fracture does not require any surgical intervention or weightbearing restrictions. It was recommended that she be fitted for and obtain a right hip abduction splint in hopes of providing luis m e stability in minimizing her risk of further dislocations. Use of an abduction pillow while in bed and use of the hip abduction brace while out of bed and ambulating was recommended. She will follow up with her treating orthopedist, Dr. Jerome. /[id number]/RAMIROL
[2019-03-25] MEDS: ADDERALL 20 MG TAB PO SCH (15:22)
[2019-03-25] MEDS: RIVAROXABAN 20 MG TAB PO SCH (17:28)
[2019-03-25] MEDS: ZOLPIDEM TARTRATE 5 MG TAB PO PRN (23:57)
[2019-03-26] MEDS: LEVOTHYROXINE 50 MCG TAB PO SCH (05:55)
[2019-03-26] MEDS: morphINE SR 30 MG TAB PO SCH ×3 (08:55→21:00)
[2019-03-26] MEDS: MULTIVITAMINS 1 EACH TAB PO SCH (08:56)
[2019-03-26] MEDS: GABAPENTIN 400 MG CAP PO SCH ×3 (08:56→21:00)
[2019-03-26] MEDS: ADDERALL 20 MG TAB PO SCH ×2 (08:56→15:02)
[2019-03-26] MEDS: PSYLLIUM METAMUCIL 1 PKT PO SCH ×2 (08:56→10:04)
--- NOTE | 2019-03-26 08:58 | HOSPPROG ---
Hospitalist Progress Note Assessment/Plan: 63 yo F w/ hx of b/l hip arthroplasties, R TKA, C2 spinal cord injury, depression, and chronic pain presents with R hip pain. The patient was cleaning her bathroom when she felt her R hip dislocate. She came to the ED and the dislocation was confirmed on XR. Dr. Villela reduced her R hip in the ED. Continued to have pain so was admitted for further evaluation. * right hip dislocation (recurrent) -status post reduction in the emergency room -to follow up with Dr Jerome in the OP setting -appreciate Dr Castaneda -brace not quite fitting correctly, PT to call [facility] to fix *r knee pain -brace in place *chronic pain on chronic continuous opiates -due to multiple surgeries and C2 spinal cord injury -resumed her home medications * Depression, Anxiety - Continue home medications *plan: she would really benefit from a SNF, she has been on the edge making it at home; she very much wants to return home, but feels she may not be able to place brace on due to issues w her left hand. She is extremely weak. Subjective: Lara is tearful and frustrated about being weak and not being able to put the brace on. Objective: Vital Signs Temp Pulse Resp BP Pulse Ox 37.1 C 93 18 164/114 H 94 03/26/19 07:48 03/26/19 07:48 03/26/19 07:48 03/26/19 07:48 03/26/19 07:48 Laboratory Results 03/25/19 04:17 03/25/19 04:17 03/25/19 03/26/19 03/27/19 05:59 05:59 05:59 Intake Total 1000 750 Balance 1000 750 - Physical Exam Eyes: PERRL Ears, Nose, Mouth, Throat: hearing normal Respiratory: no respiratory distress Skin: warm Musculoskeletal: generalized weakness, other (has mulitple impairments with her right leg being shortened, left hand is not mobile) Neurologic: AAOx3 Psychiatric: interacting appropriately ICD10 Worksheet Patient Problems: Problems Problem Status Onset Hip dislocation, right Acute Encounter for medication refill Acute Femoral neck fracture Acute Knee pain Acute
[2019-03-26] MEDS: NALOXEGOL OXALATE 25 MG PO SCH (10:01)
--- NOTE | 2019-03-26 11:10 | ASMTCMCOM ---
CM Note CM Note Notes: Spoke with pt in the room. Pt admitted for hip dislocation and therapies are recommending rehab. Pt is agreeable and has requested referral sent to [facility], with [facility] as a back up. Pt is also requesting that she be able to stop by home on the way to rehab to get some things as she has no one she can trust to go in her apartment. 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 Acceptance and insurance auth pending. Pt stable for dc now. CM to follow. D/C Plan: [facility] pending acceptance and insurance auth Date Signed: 03/26/2019 11:10 AM Electronically Signed By:Prabha Felix
--- NOTE | 2019-03-26 11:44 | PDMN ---
Medical Necessity Medical necessity: [facility] Musculoskeletal Disease: 63 yo w/ R hip pain. Eval reveals R hip dislocation which occurred w/ minimal force, recurrent. Initially OBS for eval/tx but change to IP status for ortho consult, PT/OT, brace fitting, pt not safe to d/c home per [employer], PT/OT. Hx b/l hip arthroplasties , R TKA, C2 spinal cord injury, depression, and chronic pain. Change to IP status @1513 per MD order.
[2019-03-26] MEDS: oxyCODONE IR 5 MG TAB PO PRN ×2 (17:10→23:38)
[2019-03-26] MEDS: RIVAROXABAN 20 MG TAB PO SCH (17:11)
[2019-03-26] MEDS: ZOLPIDEM TARTRATE 5 MG TAB PO PRN (23:38)
[2019-03-27] MEDS: LEVOTHYROXINE 50 MCG TAB PO SCH (05:02)
[2019-03-27] MEDS: ADDERALL 20 MG TAB PO SCH ×2 (09:18→14:39)
[2019-03-27] MEDS: MULTIVITAMINS 1 EACH TAB PO SCH (09:19)
[2019-03-27] MEDS: morphINE SR 30 MG TAB PO SCH ×3 (09:19→20:59)
[2019-03-27] MEDS: PSYLLIUM METAMUCIL 1 PKT PO SCH (09:19)
[2019-03-27] MEDS: GABAPENTIN 400 MG CAP PO SCH ×3 (09:19→20:58)
[2019-03-27] MEDS: NALOXEGOL OXALATE 25 MG PO SCH (09:22)
--- NOTE | 2019-03-27 11:05 | HOSPPROG ---
Hospitalist Progress Note Assessment/Plan: 63 yo F w/ hx of b/l hip arthroplasties, R TKA, C2 spinal cord injury, depression, and chronic pain presents with R hip pain. The patient was cleaning her bathroom when she felt her R hip dislocate. She came to the ED and the dislocation was confirmed on XR. Dr. Villela reduced her R hip in the ED. Continued to have pain so was admitted for further evaluation. * right hip dislocation (recurrent) -status post reduction in the emergency room -to follow up with Dr Jerome in the OP setting -appreciate Dr Castaneda -brace *r knee pain -brace in place *chronic pain on chronic continuous opiates -due to multiple surgeries and C2 spinal cord injury -resumed her home medications * Depression, Anxiety - Continue home medications *plan: Lara isn't sure she wants to go to rehab, has things to take care of at home. She is going to call her surgeon to see if she can get her right hip evaluated. spoke w PT and she was able to get her splint on. She would like a bit more time in trying to get the splint on her right leg. Hopefully, can dc home tomorrow w home care Subjective: Lara is feeling better today, she would prefer to return home. Objective: Vital Signs Temp Pulse Resp BP Pulse Ox 36.6 C 71 16 87/50 L 98 03/27/19 07:34 03/27/19 07:34 03/27/19 07:34 03/27/19 07:34 03/27/19 07:34 03/26/19 03/27/19 03/28/19 05:59 05:59 05:59 Intake Total 750 1050 Balance 750 1050 - Physical Exam Constitutional: chronically ill appearing, other (thin) Eyes: PERRL Ears, Nose, Mouth, Throat: hearing normal Respiratory: no respiratory distress Skin: warm Musculoskeletal: generalized weakness Neurologic: AAOx3 Psychiatric: interacting appropriately ICD10 Worksheet Patient Problems: Problems Problem Status Onset Hip dislocation, right Acute Encounter for medication refill Acute Femoral neck fracture Acute Knee pain Acute
--- NOTE | 2019-03-27 12:19 | ASMTCMCOM ---
CM Note CM Note Notes: Spoke with pt in the room and with hospitalist. Pt is now refusing SNF and has been accepted by [facility] for PT/OT and RN. Pt was able to demonstrate to PT that she could apply her splint independently. Pt will arrange transportation for discharge tomorrow with a friend. At pt's request, CM left message for [employer] to arrange for [employer]. CM to follow. D/C Plan: [facility] PT/OT/RN Date Signed: 03/27/2019 12:19 PM Electronically Signed By:Prabha Felix
[2019-03-27] MEDS: oxyCODONE IR 5 MG TAB PO PRN ×2 (14:38→21:00)
[2019-03-27] MEDS ORDERED: BISACODYL 10 MG SUPP PR PRN (15:05)
[2019-03-27] MEDS ORDERED: LACTULOSE 20 GM/30 ML UDCUP PO PRN (15:05)
[2019-03-27] MEDS ORDERED: MAGNESIUM HYDROXIDE 30 ML UDCUP PO PRN (15:05)
[2019-03-27] MEDS ORDERED: POLYETHYLENE GLYCOL 3350 17 GM PKT PO PRN (15:05)
[2019-03-27] MEDS: RIVAROXABAN 20 MG TAB PO SCH (18:41)
[2019-03-27] MEDS: SENNOSIDES/DOCUSATE SODIUM TAB PO SCH (20:59)
[2019-03-27] MEDS: ZOLPIDEM TARTRATE 5 MG TAB PO PRN (22:44)
[2019-03-28] MEDS: LEVOTHYROXINE 50 MCG TAB PO SCH (05:28)
[2019-03-28] MEDS: ADDERALL 20 MG TAB PO SCH ×2 (07:56→15:59)
[2019-03-28] MEDS: PSYLLIUM METAMUCIL 1 PKT PO SCH (07:56)
[2019-03-28] MEDS: SENNOSIDES/DOCUSATE SODIUM TAB PO SCH (07:56)
[2019-03-28] MEDS: GABAPENTIN 400 MG CAP PO SCH ×2 (07:57→15:59)
[2019-03-28] MEDS: MULTIVITAMINS 1 EACH TAB PO SCH (07:57)
[2019-03-28] MEDS: morphINE SR 30 MG TAB PO SCH ×2 (07:57→15:59)
[2019-03-28] MEDS: oxyCODONE IR 5 MG TAB PO PRN ×2 (07:58→14:21)
[2019-03-28 08:03] VITALS: BP 111/78
[2019-03-28] MEDS: NALOXEGOL OXALATE 25 MG PO SCH (10:59)
--- NOTE | 2019-03-28 12:02 | PDIAF ---
- Diagnosis Diagnosis: hip dislocation Code Status: Full Code - Medication Management Discharge Medications: electronically signed and located in the Home Medication List. PICC Care - Routine: N/A - Orders Services needed: Home Care, Physical Therapy, Occupational Therapy Home Care Face to Face: I certify that this patient was under my care and that I had the required [id number] encounter meeting the encounter requirements on the discharge day. My findings support the fact that the patient is homebound as defined in Home Care Face to Face Continued: CMS Chapter 7 Medicare Benefits Manual 30.1.1 , The condition of the patient is such that there exists a normal inability to leave home and consequently, leaving home would require a considerable and taxing effort. Isolation Type: None Diet Recommendation: no restrictions on diet - Follow Up Care Current Providers and Referrals: Chip Castaneda MD [Medical Doctor] - As per Instructions NONE *PRIMARY CARE P,. [Unknown] - As per Instructions
--- NOTE | 2019-03-28 13:58 | ASDISCHSUM ---
Discharge Information Plan Status:Home with Home Health Medically Cleared to Leave:03/28/2019 Discharge Date:03/28/2019 CM D/C Disposition:Home Health Service ADT D/C Disposition:Home Health Service Projected Discharge Date:03/28/2019 11:00 AM Transportation at D/C:Friend Discharge Delay Reason: Follow-Up Date:03/28/2019 11:00 AM Discharge Slot: Final Diagnosis:hip dislocation Placement Information Referral Type:*Fci/SNF Referral ID:[id number] Provider Name: Address 1: Phone Number: Address 2: Fax Number: City: Selection Factors: State: Referral Type:*Home Health Care Services Referral ID:[id number] Provider Name:[facility] Address 1:[address] [address] Address 2: City:[place] Selection Factors: State:[place] Patient Contact Information Contact Name:ABBI Relationship:Sister Address: City: Alternate Phone: State/[facility] Code: Email: Financial Information Financial Class:Medicare Primary Plan Desc:MEDICARE INPATIENT Primary Plan Number:[id number] Secondary Plan Desc:[facility] Secondary Plan Number:[id number] Assessment Information LACE LACE Length of stay for Answers: 3 days current admission Acuity / Level of Answers: Yes Care: Did the patient have an inpatient admission? Comorbidities - select Answers: Opioid dependence all that apply / Chronic pain Other Notes: C2 spinal cord injury, chronic pain # of Emergency department Answers: 3-4 visits in the last 6 months Social determinants Answers: Mental health diagnosis (anxiety, depression, pers onality disorders, etc.) Score: 17 Date Signed: 03/28/2019 01:57 PM Electronically Signed By:Prabha Felix [facility] Initial CM Assessment Living Arrangements What is your living Answers: Alone arrangement? Who do you live with? Type Of Residence What kind of residence do Answers: House you live in? Discharge Plan Comments Coordination Status Comments Notes: Patient is a 63yo female who comes to [facility] for her right hip dislocation and is being admitted OBS for further evaluation. PT/OT evals have been ordered. D/C plan TBD. CM will follow. Date Signed: 03/25/2019 10:36 AM Electronically Signed By:Staci Quinteros LCSW [facility] CM Progress Note CM Note CM Note Notes: Spoke with pt in the room. Pt admitted for hip dislocation and therapies are recommending rehab. Pt is agreeable and has requested referral sent to [facility], with [facility] as a back up. Pt is also requesting that she be able to stop by home on the way to rehab to get some things as she has no one she can trust to go in her apartment. CM sent referral to [facility] and also queried about stopping by home to cigar packer and picker things. Acceptance and insurance auth pending. Pt stable for dc now. CM to follow. D/C Plan: [facility] pending acceptance and insurance auth Date Signed: 03/26/2019 11:10 AM Electronically Signed By:Prabha Felix [facility] CM Progress Note CM Note CM Note Notes: Spoke with pt in the room and with hospitalist. Pt is now refusing SNF and has been accepted by [facility] for PT/OT and RN. Pt was able to demonstrate to PT that she could apply her splint independently. Pt will arrange transportation for discharge tomorrow with a friend. At pt's request, CM left message for [employer] to arrange for [employer]. CM to follow. D/C Plan: [facility] PT/OT/RN Date Signed: 03/27/2019 12:19 PM Electronically Signed By:Prabha Felix Case Management Discharge Plan Note Case Management Discharge Discharge Order Complete? Answers: Yes Transportation Arranged Answers: Family/Friends Transport will Pick (Date 03/28/2019 12:00 AM & Time) Faxed Final Orders Answers: Yes Agency/Facility Transfer Answers: Yes Report Printed & Faxed to Receiving Agency Discharge Comments Notes: CM spoke with pt in the room. Pt still refusing SNF and choosing to dc home with [facility] and [facility], who were notified of pt's discharge. Pt asked CM about arranging a ride to surgery, and CM explained that Medicare does not cover transportation but if she qualified for Medicaid, they might cover transportation. Pt didn't feel she would qualify. CM and pt's RN educated her about [employer] and [employer] and recommended a taxi service. No further CM needs noted at this time. Date Signed: 03/28/2019 01:55 PM Electronically Signed By:Prabha Felix Intervention Information Intervention Type:*IM-Signed Date of Service:03/28/2019 11:23 AM Patient Type:Inpatient Staff Member:Leah Ramos Hours: Discipline: Severity: Comment:
[2019-03-28] MEDS: RIVAROXABAN 20 MG TAB PO SCH (16:35)
--- NOTE | 2019-03-28 18:58 | GDS ---
[f rep st] DISCHARGE SUMMARY DISCHARGE DIAGNOSES: 1. Right hip dislocation. 2. Right knee pain. 3. Chronic pain, on continuous opiates. 4. History of depression, anxiety. STUDIES AND PROCEDURES DONE: Hip x-rays. CONSULTATION: Dr. Castaneda PHYSICAL EXAM: GENERAL: The patient is alert. VITAL SIGNS: Afebrile at 36.3, pulse 72. Respirato ry rate is 12. Blood pressure is 111/78. She is saturating 93% on room air. I have seen and evaluated the patient on the day of discharge. HOSPITAL COURSE: The patient is a 63-year-old female who presented to the emergency room after dislo cating her hip. She was evaluated and diagnosed with: 1. Right hip dislocation: During this hospital course, the patient had her hip reduced in the emerg ency room. Her pain was uncontrolled, and she was admitted to the hospital for further evaluation. 2. Right knee pain: She has a brace in place and did receive a consultation from Dr. Castaneda of Orth opedics. 3. Chronic pain, on chronic continuous opiates: Her home medications have been continued, with no p rescriptions provided at the time of disposition. 4. Depression with anxiety: This is stable, with no need for intervention. Home medications have b een continued. DISPOSITION: She will be discharged home with home health care. [facility], however, is denying this at this time. Followup will be with her orthoped ist, Dr. Castaneda, as well as her primary care physician. DISCHARGE MEDICATIONS: Please refer to EMR form. I have not provided prescriptions for the patient at the time of disposition, nor have I adjusted any of her home medications to the best of my knowled ge. I spent greater than 35 minutes in the care, coordination, and management of this patient's dispositi on. /[id number]/MODL
--- NOTE | 2019-03-31 10:50 | PQFORM ---
PHYSICIAN QUERY FORM Needs Your Response This query form is being sent to you to assure this patient record is coded properly. Please respond to the question below: [employer] CHAIR QUESTION: Hi Please clarify if this patients recurrent hip dislocation was a dislocation of her hip prothesis. __ Yes __ No __ Other (Please Specify ) __ Unable to determine Thank You Rebecca DONOHUE Bookkeepers Supervisor INSTRUCTIONS FOR RESPONSE: Answer question by clicking on the "Edit Document" button. Move cursor to area below the stars. When complete, hit "Save." Click on the "Sign" button, then click "Sign" again. Type in your PIN and hit "Enter." MTDD
== END 2019-03-28 17:08 | disposition home health service (06) | DRG 561 ==
LOC: EDUNIT# → F3N 04:58 → OBSVTOIN 15:13
PROVIDERS: ADMIT Student in an Organized Health Care Education/Training Program; ATTEND Student in an Organized Health Care Education/Training Program
PROC: 0SS9XZZ Reposition Right Hip Joint, External Approach (ICD-10-PCS; principal; 2019-03-25)
DX: T84.020A Dislocation of internal right hip prosthesis, initial encounter (principal); M25.561 Pain in right knee; G89.29 Other chronic pain; X58.XXXA Exposure to other specified factors, initial encounter; Y93.E9 Activity, other interior property and clothing maintenance; E03.9 Hypothyroidism, unspecified; F41.8 Other specified anxiety disorders; Z91.81 History of falling; Z96.643 Presence of artificial hip joint, bilateral; Z96.651 Presence of right artificial knee joint; Z87.891 Personal history of nicotine dependence
CPT/HCPCS: 96374; 97116-GP; 97162-GP; 97166-GO; 97535-GO; J1170; J1650; J2704; L1830

== ENCOUNTER 2019-04-27 03:26 | Emergency (ER) | payer OTHER, BC | END 2019-04-27 10:15 | disposition home or self-care (01) ==